=== PATIENT | male | born 1990 | race Caucasian/White ===

== ENCOUNTER 2016-10-26 02:00 | Emergency (ER) | payer OTHER ==
[~2016-10-26] VITALS: Ht 172.7 cm; Wt 70.8 kg
[2016-10-26 02:19] VITALS: BP 133/70
== END 2016-10-26 02:46 | disposition other institution (70) ==
LOC: ED 02:00
DX: Z02.89 Encounter for other administrative examinations (principal); K08.89 Other specified disorders of teeth and supporting structures; F17.210 Nicotine dependence, cigarettes, uncomplicated

== ENCOUNTER 2016-12-27 08:59 | Emergency (ER) | payer OTHER ==
[~2016-12-27] VITALS: Ht 167.6 cm; Wt 81.2 kg
[2016-12-27 11:29] VITALS: BP 131/79
== END 2016-12-27 11:29 | disposition home or self-care (01) ==
LOC: ED 08:59
DX: H10.9 Unspecified conjunctivitis (principal); L03.213 Periorbital cellulitis
CPT/HCPCS: J0696

== ENCOUNTER 2017-04-26 00:04 | Emergency (ER) | payer OTHER ==
[~2017-04-26] VITALS: Ht 175.3 cm; Wt 95.2 kg
[2017-04-26 00:04] VITALS: Ht 175.3 cm; Wt 95.2 kg
[2017-04-26 00:44] VITALS: BP 125/77
== END 2017-04-26 00:44 | disposition other institution (70) ==
LOC: ED 00:04
DX: Z02.89 Encounter for other administrative examinations (principal)

== ENCOUNTER 2017-07-25 20:17 | Emergency (ER) | payer SELFPAY | END 2017-07-25 21:15 | disposition left against medical advice (07) | LOC: ED 20:17 | DX: Z53.21 Procedure and treatment not carried out due to patient leaving prior to being seen by health care provider (principal) ==

== ENCOUNTER 2019-11-02 18:01 | Emergency (ER) | payer OTHER ==
[~2019-11-02] VITALS: Ht 170.2 cm; Wt 99.8 kg
[2019-11-02 18:10] VITALS: BP 122/84; Ht 170.2 cm; Wt 99.8 kg
== END 2019-11-02 18:33 | disposition other institution (70) ==
LOC: ED 18:01
DX: Z02.89 Encounter for other administrative examinations (principal)